=== PATIENT | female | born 1975 | race Caucasian/White ===

== ENCOUNTER 2019-03-08 19:21 | Inpatient (IN) | payer OTHER ==
[2019-03-08] MEDS ORDERED: SODIUM CHLORIDE 0.9% 1,000 ML IV STA (19:44)
[2019-03-08] MEDS ORDERED: ONDANSETRON 4 MG/2 ML VIAL IVP STA (19:44)
[2019-03-08] MEDS ORDERED: HYDROmorphone 1 MG/ML 1 ML SYRINGE IVP STA ×2 (19:44→22:16)
--- NOTE | 2019-03-08 19:48 | ED ---
Abdominal Pain HPI - General Chief Complaint: Abdominal Pain Stated Complaint: Back Pain Time Seen by Provider: 03/08/19 19:36 Source: patient Mode of arrival: wheelchair Limitations: no limitations - History of Present Illness Initial Comments: 43-year-old female patient presents to the emergency department today for evaluation of midepigastric and left upper quadrant abdominal pain. Patient states the pain is radiating through to her back. Patient states she's had this pain on and off for the last 2 weeks. States she does have some pain every day. She denies nausea or vomiting with this. Denies diarrhea but states she does have issues with constipation but never pain like this. She denies fever or chills. Denies any hematuria, dysuria, urinary frequency, urinary urgency. This was in to see her physician earlier today and was told that she was clinically be having an outpatient CT scan. Patient states the pain worsened so she presented here for further evaluation. States she did take the Celebrex her pain with no relief. She denies history of abdominal surgery. Denies history of alcohol or drug use. Patient denies any recent rash, shortness breath, chest pain, numbness, tingling, dizziness, weakness, hematuria, dysuria, urinary urgency, urinary frequency, headache, visual changes, or any other complaints. - Related Data Home Medications Medication Instructions Recorded Confirmed Celecoxib [CeleBREX] 200 mg PO DAILY 03/08/19 03/08/19 Esomeprazole Magnesium [NexIUM] 20 mg PO DAILY 03/08/19 03/08/19 Allergies Allergy/AdvReac Type Severity Reaction Status Date / Time cyclobenzaprine Allergy Intermediate Unknown Verified 03/08/19 23:29 [From Flexeril] meperidine [From Demerol] Allergy Intermediate Itching Verified 03/08/19 23:29 propoxyphene Allergy Intermediate Itching Verified 03/08/19 23:29 [From Darvocet-N 100] Review of Systems ROS Statement: Those systems with pertinent positive or pertinent negative responses have been documented in the HPI. ROS Other: All systems not noted in ROS Statement are negative. Past Medical History Additional Past Medical History / Comment(s): back pain History of Any Multi-Drug Resistant Organisms: None Reported Past Surgical History: Tubal Ligation Past Psychological History: No Psychological Hx Reported Smoking Status: Current every day smoker Past Alcohol Use History: None Reported Past Drug Use History: None Reported - Past Family History Mother Additional Family Medical History / Comment(s): Lung cancer General Exam Limitations: no limitations General appearance: alert, in no apparent distress, other (This is a well- developed, well-nourished adult female patient in mild distress related to pain. Vital signs upon presentation are temperature 98.0F, pulse 102, respirations 18, blood pressure 152/43, pulse ox 98% on room air.) Eye exam: Present: normal appearance, PERRL, EOMI. Absent: scleral icterus, conjunctival injection, periorbital swelling ENT exam: Present: normal exam, normal oropharynx, mucous membranes moist Respiratory exam: Present: normal lung sounds bilaterally. Absent: respiratory distress, wheezes, rales, rhonchi, stridor Cardiovascular Exam: Present: regular rate, normal rhythm, normal heart sounds. Absent: systolic murmur, diastolic murmur, rubs, gallop, clicks GI/Abdominal exam: Present: soft, tenderness (Left upper quadrant and mid epigastric tenderness), normal bowel sounds. Absent: distended, guarding, rebound, rigid Neurological exam: Present: alert, oriented X3, CN II-XII intact Psychiatric exam: Present: normal affect, normal mood Skin exam: Present: warm, dry, intact, normal color. Absent: rash Course Vital Signs 03/08/19 03/08/19 03/08/19 19:25 21:30 22:37 Temperature 98 F 98.2 F Pulse Rate 102 H 98 95 Respiratory 18 20 22 Rate Blood Pressure 152/43 137/67 122/72 O2 Sat by Pulse 98 99 98 Oximetry Medical Decision Making - Medical Decision Making 43-year-old female patient presents to the emergency department today for evaluation of midepigastric and left upper quadrant abdominal pain. Patient reports radiation of the pain through to her back. Physical examination was performed and revealed midepigastric and left upper quadrant tenderness. Labs reviewed and did reveal elevated AST. CT abdomen and pelvis was obtained and was unremarkable, did show contracted gallbladder. Upon reevaluation patient is still very uncomfortable, crying with pain. We will start Protonix, given additional pain medication and admit for further evaluation and consult gastroenterology. - Lab Data Result diagrams: 03/08/19 19:44 03/08/19 20:44 Lab Results 11/03/08/19 03/08/19 Range/Units 19:44 20:11 20:44 WBC 9.6 (3.8-10.6) k/uL RBC 4.80 (3.80-5.40) m/uL Hgb 15.3 (11.4-16.0) gm/dL Hct 44.6 (34.0-46.0) % MCV 93.0 (80.0-100.0) fL MCH 31.8 (25.0-35.0) pg MCHC 34.2 (31.0-37.0) g/dL RDW 12.6 (11.5-15.5) % Plt Count 214 (150-450) k/uL Neutrophils % 62 % Lymphocytes % 26 % Monocytes % 6 % Eosinophils % 3 % Basophils % 1 % Neutrophils # 6.0 (1.3-7.7) k/uL Lymphocytes # 2.5 (1.0-4.8) k/uL Monocytes # 0.6 (0-1.0) k/uL Eosinophils # 0.3 (0-0.7) k/uL Basophils # 0.1 (0-0.2) k/uL Sodium 140 (137-145) mmol/L Potassium 4.6 (3.5-5.1) mmol/L Chloride 111 H (98-107) mmol/L Carbon Dioxide 21 L (22-30) mmol/L Anion Gap 8 mmol/L BUN 14 (7-17) mg/dL Creatinine 0.66 (0.52-1.04) mg/dL Est GFR (CKD-EPI)AfAm >90 (>60 ml/min/1.73 sqM) Est GFR (CKD-EPI)NonAf >90 (>60 ml/min/1.73 sqM) Glucose 111 H (74-99) mg/dL Plasma Lactic Acid Marco 1.4 (0.7-2.0) mmol/L Calcium 8.8 (8.4-10.2) mg/dL Total Bilirubin 0.5 (0.2-1.3) mg/dL AST 40 H (14-36) U/L ALT 35 (9-52) U/L Alkaline Phosphatase 89 (38-126) U/L Troponin I (0.000-0.034) ng/mL Total Protein 7.1 (6.3-8.2) g/dL Albumin 4.1 (3.5-5.0) g/dL Amylase 53 (30-110) U/L Lipase 138 (23-300) U/L Urine Color Urine Appearance (Clear) Urine pH (5.0-8.0) Ur Specific [place] (1.001-1.035) Urine Protein (Negative) Urine Glucose (UA) (Negative) Urine Ketones (Negative) Urine Blood (Negative) Urine Nitrite (Negative) Urine Bilirubin (Negative) Urine Urobilinogen (<2.0) mg/dL Ur Leukocyte Esterase (Negative) Urine RBC (0-5) /hpf Ur Squamous Epith Cells (0-4) /hpf Urine Bacteria (None) /hpf Urine Mucus (None) /hpf 03/08/19 03/08/19 Range/Units 20:44 21:57 WBC (3.8-10.6) k/uL RBC (3.80-5.40) m/uL Hgb (11.4-16.0) gm/dL Hct (34.0-46.0) % MCV (80.0-100.0) fL MCH (25.0-35.0) pg MCHC (31.0-37.0) g/dL RDW (11.5-15.5) % Plt Count (150-450) k/uL Neutrophils % % Lymphocytes % % Monocytes % % Eosinophils % % Basophils % % Neutrophils # (1.3-7.7) k/uL Lymphocytes # (1.0-4.8) k/uL Monocytes # (0-1.0) k/uL Eosinophils # (0-0.7) k/uL Basophils # (0-0.2) k/uL Sodium (137-145) mmol/L Potassium (3.5-5.1) mmol/L Chloride (98-107) mmol/L Carbon Dioxide (22-30) mmol/L Anion Gap mmol/L BUN (7-17) mg/dL Creatinine (0.52-1.04) mg/dL Est GFR (CKD-EPI)AfAm (>60 ml/min/1.73 sqM) Est GFR (CKD-EPI)NonAf (>60 ml/min/1.73 sqM) Glucose (74-99) mg/dL Plasma Lactic Acid Marco (0.7-2.0) mmol/L Calcium (8.4-10.2) mg/dL Total Bilirubin (0.2-1.3) mg/dL AST (14-36) U/L ALT (9-52) U/L Alkaline Phosphatase (38-126) U/L Troponin I <0.012 (0.000-0.034) ng/mL Total Protein (6.3-8.2) g/dL Albumin (3.5-5.0) g/dL Amylase (30-110) U/L Lipase (23-300) U/L Urine Color Yellow Urine Appearance Clear (Clear) Urine pH 6.0 (5.0-8.0) Ur Specific [place] >1.050 H (1.001-1.035) Urine Protein Trace H (Negative) Urine Glucose (UA) Negative (Negative) Urine Ketones Negative (Negative) Urine Blood Moderate H (Negative) Urine Nitrite Negative (Negative) Urine Bilirubin Negative (Negative) Urine Urobilinogen <2.0 (<2.0) mg/dL Ur Leukocyte Esterase Negative (Negative) Urine RBC 1 (0-5) /hpf Ur Squamous Epith Cells 1 (0-4) /hpf Urine Bacteria Rare H (None) /hpf Urine Mucus Rare H (None) /hpf - EKG Data -: EKG Interpreted by Me EKG Comments: EKG obtained at 2054 shows normal sinus rhythm with a ventricular rate of 85, MO interval 142, QRS duration 82, QT 372, QTc 442. No evidence of ST elevation or depression. - Radiology Data Radiology results: report reviewed, image reviewed CT abdomen and pelvis is obtained. Report was reviewed in its entirety. Impression by Dr. Perdomo shows negative computed tomography scan abdomen and pelvis. There is clearing of the minimal pelvic fluid compared to old exam. Normal appendix. Disposition Clinical Impression: Midepigastric pain Disposition: ADMITTED IP TO THIS [facility] Condition: Serious Decision to Admit Reason: Admit from EC Decision Date: 03/08/19 Decision Time: 22:16
[2019-03-08 21:07] LABS: Basophils # (A) 0.1 k/uL (0-0.2); Basophils % (A) 1 %; Eosinophils # (A) 0.3 k/uL (0-0.7); Eosinophils % (A) 3 %; HCT 44.6 % (34.0-46.0); HGB 15.3 gm/dL (11.4-16.0); Lymphocytes # (A) 2.5 k/uL (1.0-4.8); Lymphocytes % (A) 26 %; MCH 31.8 pg (25.0-35.0); MCHC 34.2 g/dL (31.0-37.0); Monocytes # (A) 0.6 k/uL (0-1.0); Monocytes % (A) 6 %; Neutrophils % (A) 62 %; Platelet Count 214 k/uL (150-450); RDW 12.6 % (11.5-15.5); WBC 9.6 k/uL (3.8-10.6)
[2019-03-08 21:25] LABS: ALT 35 U/L (9-52); AST 40 U/L (14-36); African American GFR (CKD) >90 (>60 ml/min/1.73 sqM); Albumin 4.1 g/dL (3.5-5.0); Alkaline Phosphatase 89 U/L (38-126); Amylase 53 U/L (30-110); Anion Gap 8 mmol/L; Blood Urea Nitrogen 14 mg/dL (7-17); Calcium 8.8 mg/dL (8.4-10.2); Carbon Dioxide 21 mmol/L (22-30); Chloride 111 mmol/L (98-107); Glucose 111 mg/dL (74-99); Non-African American GFR(CKD) >90 (>60 ml/min/1.73 sqM); Potassium 4.6 mmol/L (3.5-5.1); Sodium 140 mmol/L (137-145); Total Bilirubin 0.5 mg/dL (0.2-1.3); Total Protein 7.1 g/dL (6.3-8.2)
--- NOTE | 2019-03-08 21:46 | CT ---
EXAMINATION TYPE: CT abdomen pelvis w con DATE OF EXAM: 03/08/2019 COMPARISON: 09/01/2011 HISTORY: Pt says it feels like she has a golf ball sitting uder LT rib, radiating pain to back CT DLP: 911.8 mGycm Automated exposure control for dose reduction was used. TECHNIQUE: Helical acquisition of images was performed from the lung bases through the pelvis. CONTRAST: Performed without Oral Contrast and with IV Contrast, patient injected with 100 mL of Isovue 370. FINDINGS: Lung bases are clear. There is no pleural effusion. Heart size is normal. There is no pericardial eff usion. Liver spleen pancreas appear normal. Stomach appears normal. Gallbladder is contracted. Bile ducts ar e not dilated. There is no adrenal mass. Kidneys show satisfactory contrast opacification. There is no hydronephrosi s. Bladder distends smoothly. There is no inguinal hernia. There is no free fluid in the pelvis. Ther e is no retroperitoneal adenopathy. Uterus is retroverted. Lumbar spine is intact. Bony pelvis is intact. There is no mesenteric edema. There is no ascites or free air. Appendix appears normal. There is no s ign of a bowel obstruction. Delayed images show normal contrast excretion of the kidneys. IMPRESSION: NEGATIVE CT SCAN ABDOMEN AND PELVIS. THERE IS CLEARING OF THE MINIMAL PELVIC FLUID COMPARED TO OLD EX AM. NORMAL APPENDIX.
[2019-03-08] MEDS ORDERED: NALOXONE 0.4 MG/ML 1 ML VIAL IV PRN (22:14)
[2019-03-08 22:17] LABS: Appearance,Urine Clear (Clear); Bacteria,Urine Rare /hpf; Bilirubin,Urine Negative (Negative); Blood,Urine Moderate (Negative); Color,Urine Yellow; Glucose,Urine (UA) Negative (Negative); Ketones,Urine Negative (Negative); Leukocyte Esterase,Urine Negative (Negative); Mucus,Urine Rare /hpf; Nitrite,Urine Negative (Negative); Protein,Urine Trace (Negative); RBC,Urine 1 /hpf (0-5); Squamous Epithelial Cell,Urine 1 /hpf (0-4); Urobilinogen,Urine <2.0 mg/dL (<2.0)
[2019-03-08 22:21] LABS: Specific Gravity,Urine >1.050 (1.001-1.035)
[2019-03-08] MEDS: SODIUM CHLORIDE 0.9% 1,000 ML IV SCH (22:42)
[2019-03-08] MEDS: METOCLOPRAMIDE 5 MG/ML 2 ML VIAL IVP SCH (23:40)
[2019-03-09] MEDS: HYDROmorphone 1 MG/ML 1 ML SYRINGE IVP PRN ×8 (01:51→23:54)
[2019-03-09] MEDS: METOCLOPRAMIDE 5 MG/ML 2 ML VIAL IVP SCH ×4 (05:29→23:54)
[2019-03-09 05:40] LABS: Basophils % (A) 0 %; Eosinophils # (A) 0.3 k/uL (0-0.7); Eosinophils % (A) 3 %; HGB 13.4 gm/dL (11.4-16.0); Lymphocytes # (A) 3.8 k/uL (1.0-4.8); Lymphocytes % (A) 42 %; MCH 31.7 pg (25.0-35.0); MCHC 34.3 g/dL (31.0-37.0); MCV 92.4 fL (80.0-100.0); Mean Platelet Volume 5.6; Monocytes # (A) 0.4 k/uL (0-1.0); Monocytes % (A) 5 %; Neutrophils # (A) 4.3 k/uL (1.3-7.7); Neutrophils % (A) 48 %; Platelet Count 285 k/uL (150-450); RBC 4.22 m/uL (3.80-5.40); RDW 12.8 % (11.5-15.5); WBC 9.1 k/uL (3.8-10.6)
[2019-03-09 06:05] LABS: ALT 33 U/L (9-52); AST 28 U/L (14-36); African American GFR (CKD) >90 (>60 ml/min/1.73 sqM); Albumin 3.2 g/dL (3.5-5.0); Alkaline Phosphatase 69 U/L (38-126); Anion Gap 4 mmol/L; Blood Urea Nitrogen 13 mg/dL (7-17); Calcium 8.2 mg/dL (8.4-10.2); Carbon Dioxide 21 mmol/L (22-30); Chloride 116 mmol/L (98-107); Glucose 101 mg/dL (74-99); Non-African American GFR(CKD) >90 (>60 ml/min/1.73 sqM); Potassium 4.3 mmol/L (3.5-5.1); Sodium 141 mmol/L (137-145); Total Bilirubin 0.3 mg/dL (0.2-1.3); Total Protein 5.8 g/dL (6.3-8.2)
[2019-03-09] MEDS: SODIUM CHLORIDE 0.9% 1,000 ML IV SCH (08:15)
[2019-03-09] MEDS ORDERED: PANTOPRAZOLE 40 MG/10 ML VIAL IV SCH (09:00)
--- NOTE | 2019-03-09 10:31 | CONS ---
CONSULTATION DATE OF SERVICE: 09 of March. REQUESTING PHYSICIAN: Dr. Ramírez. REASON FOR CONSULTATION: Epigastric pain. HISTORY OF PRESENT ILLNESS: The patient is a 43-year-old pleasant white female came to the emergency room yesterday evening with ongoing epigastric pain for the last 1-2 weeks duration. The pain is mostly in the epigastric area radiating to the back and occasionally to the left upper quadrant area on and off for the last 2 weeks duration. She went and saw Dr. Ho's PA and was started on Nexium as well as Celebrex and was advised to follow up in 2 weeks. However, she continued to have symptoms that have been progressively getting worse. Yesterday, she went home from work and the pain became extremely intense with some nausea but no emesis. Came in the emergency room. She initially had a CT of the abdomen and pelvis done that was unremarkable. This morning she still feels like there is a fullness in the epigastric area. She has some heartburn. Denies any nausea, vomiting. She had some dark colored stools. She never had these symptoms in the past. She had an upper endoscopy in 2000 and was diagnosed with peptic ulcer disease. She also has longstanding history of GERD and takes Zantac as needed on an outpatient basis. PAST MEDICAL HISTORY: Significant for GERD and history of peptic ulcer disease. MEDICATIONS: At home include Nexium and Celebrex. ALLERGIES: DARVOCET AND DEMEROL AND FLEXERIL. SOCIAL HISTORY: Chronic smoker. No alcohol use. FAMILY HISTORY: Mother had lung cancer. REVIEW OF SYSTEMS: CARDIOPULMONARY: No chest pain or shortness of breath. GENITOURINARY: No dysuria or hematuria. MUSCULOSKELETAL: Unremarkable. SKIN: Unremarkable. ENDOCRINE: Unremarkable. PSYCHIATRIC: Unremarkable. NEUROLOGY unremarkable. ENT/vision unremarkable. CONSTITUTIONAL: No recent weight loss. No fever, chills, night sweats. PHYSICAL EXAMINATION: Blood pressure 110/63, pulse rate 76, temperature 98. HEENT examination unremarkable. Conjunctivae pink. Sclerae anicteric. Oral cavity no lesions. NECK: No JVD or lymph node enlargement. CHEST was clear to auscultation. HEART: Regular rate and rhythm. ABDOMEN: Soft. Bowel sounds are positive. Mild tenderness in the epigastric area. EXTREMITIES: No pedal edema. SKIN no rashes. NEUROLOGIC: Alert and oriented x3. No focal deficits. LABS: WBC 9.6, hemoglobin 15.3, platelets are normal. Basic metabolic panel is within normal limits. Amylase and lipase are normal. ALT, AST of 40 and 35 respectively. T- bilirubin and alkaline phosphatase are normal. CT of the abdomen and pelvis was unremarkable. IMPRESSION: 1. This is a lady who presents to the hospital with epigastric pain for the last 2 weeks duration. The pain has been on and off for the last 2 weeks. However, yesterday the pain got extremely worse. Came to the emergency room and subsequently admitted to the hospital for further evaluation. CT of the abdomen was unremarkable. She has longstanding history of GERD and prior history of peptic ulcer disease. She denies any recent NSAID use. At this time, most likely we are dealing with peptic ulcer disease versus gastroesophageal reflux symptoms. Doubt gallbladder pathology. CT of the abdomen showed normal gallbladder. RECOMMENDATIONS: 1. Start on Protonix 40 mg q.12 hours. 2. Clear liquid diet and advance as tolerated. 3. If her symptoms continue to persist, we will consider an upper endoscopy on Monday. 4. The plan was discussed with the patient. She is agreeable to it. Thank you for this consultation. MMODL / IJN: [id number] /
--- NOTE | 2019-03-09 18:26 | P.HPIM ---
History of Present Illness H&P Date: 03/09/19 Chief Complaint: Abdominal pain Patient is a 43-year-old female with known history of asthma, GERD and chronic back pain and ongoing nicotine addiction came to ER with complaints of abdominal pain mainly in the epigastric region and left upper quadrant. Sometimes radiate into the back. Patient has been having on and off pain in the past 2 weeks. Since yesterday patient has been continuous which made her to come to ER. Patient does have nausea and vomiting. denied any hematemesis. No cough or sputum production. No fever no chills. No dysuria or hematuria. Patient was seen by her primary care physician today and was told to go to ER. Denied any dark colored stools. No recent illnesses. Patient does have a history of EGD several years ago and peptic ulcer disease was noted. Patient used to take Motrin. Denied any alcohol use. EKG showed normal sinus rhythm CT abdomen and pelvis showed negative computed tomography scan abdominal pelvis. There is clearing of the minimal pelvic fluid compared to previous exam. Normal appendix. UA negative for infection. Review of Systems Constitutional: Patient denies any fever or chills . No generalized weakness or weight loss. Abdomen: Abdominal pain and nausea. Epigastric region. No diarrhea no constipation. Respiratory: patient denied any cough is from production. No shortness of breath Neurologic: Patient denied any numbness or tingling headache. Musculoskeletal: Patient denies any complaints of joint swelling or deformity. Skin: Negative Psychiatric: Negative Endocrine: No heat or cold intolerance. No recent weight gain. Genitourinary: No dysuria or hematuria. All other 14 point ROS negative except the above Past Medical History Past Medical History: Asthma, GERD/Reflux Additional Past Medical History / Comment(s): back pain History of Any Multi-Drug Resistant Organisms: None Reported Past Surgical History: Tubal Ligation Past Anesthesia/Blood Transfusion Reactions: No Reported Reaction Past Psychological History: No Psychological Hx Reported Smoking Status: Current every day smoker Past Alcohol Use History: None Reported Past Drug Use History: None Reported - Past Family History Mother Additional Family Medical History / Comment(s): Lung cancer Medications and Allergies Home Medications Medication Instructions Recorded Confirmed Type Celecoxib [CeleBREX] 200 mg PO DAILY 03/08/19 03/08/19 History Esomeprazole Magnesium [NexIUM] 20 mg PO DAILY 03/08/19 03/08/19 History Allergies Allergy/AdvReac Type Severity Reaction Status Date / Time cyclobenzaprine Allergy Intermediate Unknown Verified 03/08/19 23:29 [From Flexeril] meperidine [From Demerol] Allergy Intermediate Itching Verified 03/08/19 23:29 propoxyphene Allergy Intermediate Itching Verified 03/08/19 23:29 [From Darvocet-N 100] Physical Exam Vitals: Vital Signs Temp Pulse Pulse Pulse Resp BP BP 03/09/19 08:18 98.0 F 76 16 110/63 03/08/19 23:10 98.0 F 83 18 124/80 03/08/19 22:37 98.2 F 95 22 122/72 03/08/19 21:30 98 20 137/67 03/08/19 19:25 98 F 102 H 18 152/43 Pulse Ox 03/09/19 08:18 98 03/08/19 23:10 97 03/08/19 22:37 98 03/08/19 21:30 99 03/08/19 19:25 98 Intake and Output 03/08/19 03/09/19 03/09/19 22:59 06:59 14:59 Intake Total 0 Balance 0 Intake: Oral 0 Other: Weight 61.235 kg 73.8 kg PHYSICAL EXAMINATION: Patient is lying in the bed comfortably, no acute distress, awake alert and oriented.. HEENT: Normocephalic. Neck is supple. Pupils reactive. Nostrils clear. Oral cavity is moist. Ears reveal no drainage. Neck reveals no JVD, carotid bruits, or thyromegaly. CHEST EXAMINATION: Trachea is central. Symmetrical expansion. Lung ivy clear to auscultation and percussion. CARDIAC: Normal S1, S2 with no gallops. No murmurs ABDOMEN: Soft. Bowel sounds normal. No organomegaly. No abdominal bruits. Extremities: reveal no edema. No clubbing or cyanosis Neurologically awake, alert, oriented x3 with well-coordinated movements. No focal deficits noted Skin: No rash or skin lesions. Psychiatric: Coperative. Nonsuicidal Musculoskeletal: No joint swelling or deformity. Normal range of motion. Results CBC & Chem 7: 03/09/19 05:23 03/09/19 05:23 Labs: Abnormal Lab Results - Last 24 Hours (Table) 03/08/19 03/08/19 03/09/19 Range/Units 20:44 21:57 05:23 Chloride 111 H 116 H (98-107) mmol/L Carbon Dioxide 21 L 21 L (22-30) mmol/L Glucose 111 H 101 H (74-99) mg/dL Calcium 8.2 L (8.4-10.2) mg/dL AST 40 H (14-36) U/L Total Protein 5.8 L (6.3-8.2) g/dL Albumin 3.2 L (3.5-5.0) g/dL Ur Specific [place] >1.050 H (1.001-1.035) Urine Protein Trace H (Negative) Urine Blood Moderate H (Negative) Urine Bacteria Rare H (None) /hpf Urine Mucus Rare H (None) /hpf Thrombosis Risk Factor Assmnt - DVT/VTE Prophylaxis DVT/VTE Prophylaxis: Mechanical Prophylaxis ordered - Choose All That Apply Any of the Below Risk Factors Present?: Yes Each Factor Represents 1 point: Age 41-60 years Other Risk Factors: No Other congenital or acquired thrombophilia - If yes, enter type in comment: No Thrombosis Risk Factor Assessment Total Risk Factor Score: 1 Thrombosis Risk Factor Assessment Level: Low Risk Assessment and Plan Assessment: Abdominal pain epigastric region. Likely due to gastritis and peptic ulcer disease. Previous history of peptic ulcer disease GERD Asthma stable Chronic back pain Ongoing nicotine addiction DVT prophylaxis with SCDs Plan: Patient be continued on Protonix IV twice daily. Continue with symptomatic management for nausea and follow closely. Gastroenterology was consulted. Continue the current management and consider EGD if the symptoms persists. Smoking cessation has been counseled. Further recommendations based on the clinical course. Time with Patient: Greater than 30
[2019-03-09] MEDS: PANTOPRAZOLE 40 MG/10 ML VIAL IV SCH (21:57)
[2019-03-10] MEDS: HYDROmorphone 1 MG/ML 1 ML SYRINGE IVP PRN ×5 (04:16→20:31)
[2019-03-10] MEDS: SODIUM CHLORIDE 0.9% 1,000 ML IV SCH ×2 (04:17→20:20)
[2019-03-10] MEDS: METOCLOPRAMIDE 5 MG/ML 2 ML VIAL IVP SCH ×4 (06:07→23:49)
[2019-03-10] MEDS: PANTOPRAZOLE 40 MG/10 ML VIAL IV SCH ×2 (07:47→20:20)
--- NOTE | 2019-03-10 12:26 | PN ---
PROGRESS NOTE DATE OF SERVICE: 03/10/2019 REQUESTING PHYSICIAN: Dr. Roy The patient is 43 -year-old pleasant white female presented to the hospital with severe epigastric pain on and off for the last 1 month duration. The symptoms have been progressively getting worse for the last 2 or 3 days duration and hence admitted to the hospital for further evaluation. She was started on empiric Protonix 40 mg q.12 hours and still continues to have epigastric pain but the nausea, vomiting has resolved. She reports no rectal bleeding or melena. PHYSICAL EXAMINATION: She appears comfortable in no apparent distress. VITAL SIGNS: Stable. Blood pressure is 135/80, pulse is 74, temperature 98.3. HEENT examination unremarkable. Conjunctivae pink. Sclerae anicteric. Oral cavity no lesions. NECK: No JVD or lymph node enlargement. Chest was clear to auscultation. Heart: Regular rate and rhythm. ABDOMEN: Soft. There was tenderness in the epigastric and right upper quadrant. The rest of the abdomen was benign. Bowel sounds are positive. No organomegaly. EXTREMITIES: No pedal edema. SKIN: No rashes. NEUROLOGIC: Alert and oriented x3. No focal deficits. LABS: Done today, CBC and CMP are within normal limits. IMPRESSION: Epigastric pain for the last 1 month duration, much worse for the last 2 days on empiric Protonix 40 mg twice daily. Seems to be gradually improving, but still has quite a few symptoms. Rule out possibility of peptic ulcer disease. RECOMMENDATIONS: 1. Advance diet as tolerated. 2. Continue with Protonix 40 mg twice daily. 3. We will proceed with an EGD tomorrow. I discussed with the patient risks, benefits, and complications of the procedure and she is agreeable to it. Thank you for this consultation. MMODL / IJN: [id number] /
[2019-03-11] MEDS: METOCLOPRAMIDE 5 MG/ML 2 ML VIAL IVP SCH ×2 (06:21→12:07)
[2019-03-11] MEDS: PANTOPRAZOLE 40 MG/10 ML VIAL IV SCH (08:20)
[2019-03-11] MEDS: HYDROmorphone 1 MG/ML 1 ML SYRINGE IVP PRN ×2 (08:26→12:07)
[2019-03-11] MEDS: SODIUM CHLORIDE 0.9% 1,000 ML IV SCH (08:32)
[2019-03-11] MEDS ORDERED: PROPOFOL 10 MG/ML 20 ML VIAL IV ONE (15:05)
[2019-03-11] MEDS ORDERED: LIDOCAINE 1% INJ 10MG/ML (20 ML MDV) ONE (15:05)
[2019-03-11] MEDS ORDERED: IV FLUID CONTINUATION 1,000 ML IV ONE ×2 (15:11)
--- NOTE | 2019-03-11 15:19 | P.PCN ---
Date of Procedure: 03/11/19 Procedure(s) Performed: BRIEF HISTORY: Patient is a 43-year-old, pleasant, female, admitted hospital with severe epigastric pain on and off for the last 1 month duration. She has been on Protonix 40 mg twice daily with some relief in her symptoms. She is hence scheduled for an upper endoscopy to evaluate for. PROCEDURE PERFORMED: Esophagogastroduodenoscop with biopsy y. PREOPERATIVE DIAGNOSIS: Chronic epigastric pain of 4 months duration. IV sedation per anesthesia. PROCEDURE: After informed consent was obtained, the patient was brought into the endoscopy unit. IV sedation was administered by Anesthesia under continuous monitoring. Initially the Olympus GIF-140 video endoscope was inserted into the mouth. Esophagus intubated without any difficulty. It was gradually advanced into the stomach and duodenum and carefully examined. The bulb and the second part of the duodenum appeared normal. The scope at this time was withdrawn to the stomach, adequately insufflated with air, and upon careful examination, mucosa of the antrum had minimal gastritis and biopsies were done from this area. The, body, cardia and the fundus appeared normal. The scope was then withdrawn into the esophagus. The GE junction was located at 39 cm from the incisors. There were 2 superficial erosions at the GE junction consistent with LA grade B reflux esophagitis. The rest of the esophagus appeared normal and the patient tolerated the procedure well. IMPRESSION: 1. 2 superficial erosions at the GE junction GE junction consistent with LA grade B reflux esophagitis. 2. And minimal antral gastritis. RECOMMENDATIONS: The findings of this examination were discussed with the patient is well as her family. Await biopsy results She will be continued on Protonix 40 mg twice daily and will add Carafate 1 g 4 times daily. Diet will be advanced as tolerated..
[2019-03-11] MEDS ORDERED: ACETAMINOPHEN TAB 325 MG TAB PO PRN (16:05)
[2019-03-11 16:39] VITALS: BP 113/67; PULSE 78; RESP 20; TEMP 98.2
[2019-03-11] MEDS ORDERED: SUCRALFATE 1 GM TAB PO SCH (17:30)
--- NOTE | 2019-03-14 18:39 | P.PN ---
Subjective Progress Note Date: 03/10/19 Principal diagnosis: Epigastric abdominal pain Patient is a 43-year-old female with known history of asthma, GERD and chronic back pain and ongoing nicotine addiction came to ER with complaints of abdominal pain mainly in the epigastric region and left upper quadrant. Sometimes radiate into the back. Patient has been having on and off pain in the past 2 weeks. Since yesterday patient has been continuous which made her to come to ER. Patient does have nausea and vomiting. denied any hematemesis. No cough or sputum production. No fever no chills. No dysuria or hematuria. Patient was seen by her primary care physician today and was told to go to ER. Denied any dark colored stools. No recent illnesses. Patient does have a history of EGD several years ago and peptic ulcer disease was noted. Patient used to take Motrin. Denied any alcohol use. EKG showed normal sinus rhythm CT abdomen and pelvis showed negative computed tomography scan abdominal pelvis. There is clearing of the minimal pelvic fluid compared to previous exam. Normal appendix. UA negative for infection. 03/10/2019 Patient says that her abdominal pain is slightly better compared to yesterday. No complaints of chest pain or shortness of breath. No fever no chills. No diarrhea no constipation. Patient is scheduled for EGD tomorrow. Current medications reviewed. Objective - Vital Signs Vital signs: Vital Signs Temp 98.7 F 03/10/19 16:00 Pulse 91 03/10/19 12:05 Resp 16 03/10/19 16:00 BP 116/71 03/10/19 16:00 Pulse Ox 83 L 03/10/19 16:00 Intake & Output 03/09/19 03/10/19 03/10/19 18:59 06:59 18:59 Intake Total 810 961 960 Balance 810 961 960 Intake: Oral 810 961 960 Other: # Voids 1 1 # Bowel Movements 2 - Exam PHYSICAL EXAMINATION: Patient is lying in the bed comfortably, no acute distress, awake alert and or iented.. HEENT: Normocephalic. Neck is supple. Pupils reactive. Nostrils clear. Oral cavity is moist. Ears reveal no drainage. Neck reveals no JVD, carotid bruits, or thyromegaly. CHEST EXAMINATION: Trachea is central. Symmetrical expansion. Lung ivy clear to auscultation and percussion. CARDIAC: Normal S1, S2 with no gallops. No murmurs ABDOMEN: Soft. Bowel sounds normal. No organomegaly. No abdominal bruits. Extremities: reveal no edema. No clubbing or cyanosis Neurologically awake, alert, oriented x3 with well-coordinated movements. No focal deficits noted Skin: No rash or skin lesions. Psychiatric: Coperative. Nonsuicidal Musculoskeletal: No joint swelling or deformity. Normal range of motion. - Labs CBC & Chem 7: 03/09/19 05:23 03/09/19 05:23 Assessment and Plan Assessment: Abdominal pain epigastric region. Likely due to gastritis and peptic ulcer disease. Previous history of peptic ulcer disease GERD Asthma stable Chronic back pain Ongoing nicotine addiction DVT prophylaxis with SCDs Plan: Patient be continued on Protonix IV twice daily. Continue with symptomatic management for nausea and follow closely. Gastroenterology is following. EGD scheduled for tomorrow.. Continue the current management. Smoking cessation has been counseled. Further recommendations based on the clinical course.
--- NOTE | 2019-03-14 18:41 | P.DS ---
Providers Date of admission: 03/10/19 08:53 Expected date of discharge: 03/11/19 Attending physician: Maria Victoria Ramírez Consults: 03/08/19 22:14 Consult Physician Routine Consulting Provider: Dolores Buck Consult Reason/Comments: Midepigastric pain Do you want consulting provider notified?: Yes Primary care physician: Stated None Hospital Course: Discharge diagnosis Abdominal pain epigastric region due to reflux esophagitis and minimal antral gastritis.. Previous history of peptic ulcer disease GERD Asthma stable Chronic back pain Ongoing nicotine addiction DVT prophylaxis with SCDs Hospital course Patient is a 43-year-old female with known history of asthma, GERD and chronic back pain and ongoing nicotine addiction came to ER with complaints of abdominal pain mainly in the epigastric region and left upper quadrant. Sometimes radiate into the back. Patient has been having on and off pain in the past 2 weeks. Since yesterday patient has been continuous which made her to come to ER. Patient does have nausea and vomiting. denied any hematemesis. No cough or sputum production. No fever no chills. No dysuria or hematuria. Patient was seen by her primary care physician today and was told to go to ER. Denied any dark colored stools. No recent illnesses. Patient does have a history of EGD several years ago and peptic ulcer disease was noted. Patient used to take Motrin. Denied any alcohol use. EKG showed normal sinus rhythm CT abdomen and pelvis showed negative computed tomography scan abdominal pelvis. There is clearing of the minimal pelvic fluid compared to previous exam. Normal appendix. UA negative for infection. 03/10/2019 Patient says that her abdominal pain is slightly better compared to yesterday. No complaints of chest pain or shortness of breath. No fever no chills. No diarrhea no constipation. Patient is scheduled for EGD tomorrow. 03/11/2019 Patient is status post EGD IMPRESSION: 1. 2 superficial erosions at the GE junction GE junction consistent with LA grade B reflux esophagitis. 2. And minimal antral gastritis. RECOMMENDATIONS: The findings of this examination were discussed with the patient is well as her family. Await biopsy results She will be continued on Protonix 40 mg twice daily and will add Carafate 1 g 4 times daily. Diet will be advanced as tolerated.. Patient was started on liquid diet and advanced to soft diet. Patient is able to tolerate oral diet. Prescriptions were sent to pharmacy. Patient is being discharged home. PHYSICAL EXAMINATION: Patient is lying in the bed comfortably, no acute distress, awake alert and oriented.. HEENT: Normocephalic. Neck is supple. Pupils reactive. Nostrils clear. Oral cavity is moist. Ears reveal no drainage. Neck reveals no JVD, carotid bruits, or thyromegaly. CHEST EXAMINATION: Trachea is central. Symmetrical expansion. Lung ivy clear to auscultation and percussion. CARDIAC: Normal S1, S2 with no gallops. No murmurs ABDOMEN: Soft. Bowel sounds normal. No organomegaly. No abdominal bruits. Extremities: reveal no edema. No clubbing or cyanosis Neurologically awake, alert, oriented x3 with well-coordinated movements. No focal deficits noted Skin: No rash or skin lesions. Psychiatric: Coperative. Nonsuicidal Musculoskeletal: No joint swelling or deformity. Normal range of motion. Discharge vitals reviewed. Patient Condition at Discharge: Serious Plan - Discharge Summary Discharge Rx Participant: Yes New Discharge Prescriptions: New Sucralfate [Carafate] 1 gm PO AC-TID 30 Days #90 tab Pantoprazole Sodium [Protonix] 40 mg PO BID #60 tablet. Discontinued Celecoxib [CeleBREX] 200 mg PO DAILY Esomeprazole Magnesium [NexIUM] 20 mg PO DAILY Discharge Medication List Pantoprazole Sodium [Protonix] 40 mg PO BID #60 tablet. 03/11/19 [Rx] Sucralfate [Carafate] 1 gm PO AC-TID 30 Days #90 tab 03/11/19 [Rx] Follow up Appointment(s)/Referral(s): Dolores Buck MD [STAFF PHYSICIAN] - 1 Week (MONDAY, Feb AT 10:00AM....ARRIVE BY 9:45AM AND BRING PICTURE ID AND $100.00 AND THEY WILL BILL FOR THE REST. ) None,Stated [Primary Care Provider] - 1-2 days Patient Instructions/Handouts: Gastritis (DC), Esophagitis (DC) Activity/Diet/Wound Care/Special Instructions: Needs indigent forms at md, form given to nursing needs to be sent to [facility] SOFT BLAND DIET NEXT FEW DAYS AND ADVANCE TO REGULAR TOLERATED. CALL FOR WORSENING SYMPTOMS, PROBLEMS, OR CONCERNS. AVOID NSAIDS LIKE MOTRIN, NAPROSYN, ASPIRIN Discharge Disposition: HOME SELF-CARE
== END 2019-03-11 17:27 | disposition home or self-care (01) | DRG 392 ==
LOC: EC 19:21 → 6PED 22:12 → OBSVTOIN 03-10 08:53
PROVIDERS: ADMIT Hospitalist; ATTEND Hospitalist
PROC: 0DB98ZX Excision of Duodenum, Via Natural or Artificial Opening Endoscopic, Diagnostic (ICD-10-PCS; principal; 2019-03-11 08:15)
PROC: 0DB58ZX Excision of Esophagus, Via Natural or Artificial Opening Endoscopic, Diagnostic (ICD-10-PCS; principal; 2019-03-11 08:15)
PROC: 0DB78ZX Excision of Stomach, Pylorus, Via Natural or Artificial Opening Endoscopic, Diagnostic (ICD-10-PCS; principal; 2019-03-11 08:15)
DX: K21.0 Gastro-esophageal reflux disease with esophagitis (principal); K29.00 Acute gastritis without bleeding; F17.200 Nicotine dependence, unspecified, uncomplicated; G89.29 Other chronic pain; J45.909 Unspecified asthma, uncomplicated; Z79.1 Long term (current) use of non-steroidal anti-inflammatories (NSAID); Z80.1 Family history of malignant neoplasm of trachea, bronchus and lung; Z87.11 Personal history of peptic ulcer disease; Z88.5 Allergy status to narcotic agent; Z88.8 Allergy status to other drugs, medicaments and biological substances
CPT/HCPCS: 36415; 43239; 74177; 80053; 81001; 81025; 82150; 83605; 83690; 84484; 85025; 88305; 93005; 96361; 96374; 96375; 96376; 99285

== ENCOUNTER → 2022-11-18 | Outpatient (CLI) | payer BC ==
[2022-11-18 15:15] LABS: Basophils # (A) 0.05 X 10*3/uL (0.00-0.10); Basophils % (A) 0.6 %; Eosinophils # (A) 0.25 X 10*3/uL (0.04-0.35); Eosinophils % (A) 3.1 %; HGB 14.5 d/dL (12.0-15.0); Lymphocytes # (A) 2.34 X 10*3/uL (0.90-5.00); Lymphocytes % (A) 28.6 %; MCH 30.5 pg (27.0-32.0); MCHC 33.7 d/dL (32.0-37.0); MCV 90.5 FL (80.0-97.0); Mean Platelet Volume 9.5 FL (9.5-12.2); Monocytes # (A) 0.53 X 10*3/uL (0.20-1.00); Monocytes % (A) 6.5 %; NRBC Per 100 WBC 0 X 10*3/uL (0.00-0.01); Neutrophils # (A) 4.99 X 10*3/uL (1.80-7.70); Platelet Count 305 X 10*3/uL (140-440); RBC 4.75 X 10*6/uL (4.10-5.20); RDW 13.6 % (11.5-14.5); WBC 8.18 X 10*3/uL (4.50-10.00)
[2022-11-18 15:51] LABS: ALT 37 U/L (8-44); AST 29 U/L (13-35); Albumin 4.5 d/dL (3.8-4.9); Albumin/Globulin Ratio 2.14 Ratio (1.60-3.17); Alkaline Phosphatase 79 U/L (41-126); BUN/Creat Ratio 16.44 Ratio (12.00-20.00); Blood Urea Nitrogen 14.8 mg/dL (9.0-27.0); Calcium 9.6 mg/dL (8.7-10.3); Carbon Dioxide 24.9 mmol/L (21.6-31.8); Chloride 104 mmol/L (96-109); Chol/HDL Ratio 5.59 Ratio; Globulin 2.1 d/dL (1.6-3.3); Glucose 108 mg/dL (70-110); LDL Cholesterol,Calculated 156.3 mg/dL (0.0-131.0); Sodium 139 mmol/L (135-145); Total Bilirubin 0.3 mg/dL (0.3-1.2); Total Protein 6.6 d/dL (6.2-8.2)
== END | disposition home or self-care (01) ==
LOC: LABWHC1 10:54
PROVIDERS: ATTEND Internal Medicine
DX: F32.2 Major depressive disorder, single episode, severe without psychotic features (principal); R53.83 Other fatigue
CPT/HCPCS: 36415; 80053; 80061; 82306; 83036; 84443; 85025